=== PATIENT | male | born 1955 | race Caucasian/White ===

== ENCOUNTER 2018-02-23 16:23 | Emergency (ER) | payer OTHER ==
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
--- NOTE | 2018-02-23 18:25 | CT ---
EXAMINATION TYPE: CT abdomen pelvis wo con DATE OF EXAM: 02/23/2018 COMPARISON: None HISTORY: Right flank pain. CT DLP: 402.2 mGycm Automated exposure control for dose reduction was used. TECHNIQUE: Helical acquisition of images was performed from the lung bases through the pelvis. FINDINGS: Lung bases are clear of infiltrate. There is no pleural effusion. Heart size is normal. There is no p ericardial effusion. Liver and spleen appear normal. The bile ducts are not dilated. Gallbladder is s omewhat contracted. There is no evidence of pancreatic mass. There is no adrenal mass. There is left renal cortical thinning. There is compensatory hypertrophy of the right kidney. There are several left renal calculi that measure up to 1 cm. There is no hydronep hrosis. Ureters are not dilated. There is no retroperitoneal adenopathy. Bladder distends smoothly. T here is no inguinal hernia. There is no free fluid in the pelvis. There is no sign of free air. There is no intestinal wall thickening. There are no dilated loops. The appendix appears normal. Ther e is no mesenteric edema or adenopathy. Abdominal aorta is atheromatous. There is celiac lymph nodes that measure up to 9 mm. Lumbar spine is intact. Bony pelvis appears intact. IMPRESSION: LEFT RENAL ATROPHY. NONOBSTRUCTING LEFT RENAL CALCULI. I DO NOT SEE A CAUSE FOR RIGHT FLANK PAIN.
[2018-02-23] MEDS ORDERED: predniSONE 50 MG TAB PO STA (18:36)
[2018-02-23 18:42] VITALS: BP 135/74; PULSE 86; RESP 18; TEMP 97.1
== END 2018-02-23 18:45 | disposition home or self-care (01) ==
LOC: EC 16:23
DX: M54.16 Radiculopathy, lumbar region (principal); N26.1 Atrophy of kidney (terminal); N20.0 Calculus of kidney; R10.31 Right lower quadrant pain; K62.89 Other specified diseases of anus and rectum; F17.200 Nicotine dependence, unspecified, uncomplicated
CPT/HCPCS: 74176; 99283; J7512